=== PATIENT | male | born 1980 | race Caucasian/White ===

== ENCOUNTER 2016-03-12 08:52 | Emergency (ER) | payer OTHER ==
[~2016-03-12] VITALS: Wt 136.0 kg
[~2016-03-12 08:52] MED LIST: AZIT250T94 PO
--- NOTE | 2016-03-12 10:05 | RADRPT ---
PROCEDURE: XR Chest. CLINICAL INDICATION: chest pain, cough TECHNIQUE: Single frontal view of the chest was obtained COMPARISON: None FINDINGS: The heart and mediastinum are within normal limits. The lungs are clear. There is no pleural effusion or pneumothorax. RPTAT: AA IMPRESSION: No acute disease. .Remy Lovelace MD, MD Date Time Electronically viewed and signed by .Remy Lovelace MD, on 03/12/2016 10:04 .S/
--- NOTE | 2016-03-12 10:12 | ERD ---
ER Documentation Chief Complaint Date/Time DATE: 03/12/16 TIME: 10:07 Chief Complaint cough and productive green sputum for 5 days. no distress. no fevers HPI This patient is a 36-year-old male with history of walking pneumonia presenting to the emergency department for cough which is been ongoing for 1.5 weeks. The patient states that the cough is productive of green sputum. He also reports difficulty catching his breath when laying down at nighttime. He also has some left lower rib pain on coughing. He has taken Mucinex with only mild relief of his symptoms. He denies any fever, chills, sore throat, ear pain, abdominal pain, urinary symptoms, nausea, vomiting, diarrhea, chest pain, or other symptoms at this time. ROS All systems reviewed and are negative except as per history of present illness. 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 Physical Exam Vitals Vital Signs Date Time Temp Pulse Resp B/P Pulse Ox O2 Delivery O2 Flow Rate FiO2 03/12/16 08:54 98.9 102 20 135/64 96 Physical Exam INITIAL VITAL SIGNS: Reviewed by me. GENERAL: Alert and interactive. No acute distress. HEAD: Head is normocephalic and atraumatic. EYES: EOMI. No scleral icterus. No conjunctival injection. ENT: Moist mucosa. NECK: Supple. Full range of motion. RESPIRATORY: Normal respiratory effort. Clear breath sounds bilaterally. No wheezing, rales, or rhonchi. CV: Regular rate and rhythm. Normal S1 S2. No S3 or S4. No murmurs. ABDOMEN: Soft, non-distended, non-tender. No guarding. No rebound. No masses. EXTREMITIES: No deformity. SKIN: Warm and dry. NEUROLOGIC: Alert and oriented x 4. Speech is normal. Moves all extremities equally. No motor or sensory deficits noted. Procedures/MDM 36-year-old male presents to the emergency department for cough 1.5 weeks. The patient states he has a history of walking pneumonia. I ordered a chest x- ray looking for any signs of bronchitis or pneumonia. One view chest x-ray interpreted by radiologist: PROCEDURE: XR Chest. CLINICAL INDICATION: chest pain, cough TECHNIQUE: Single frontal view of the chest was obtained COMPARISON: None FINDINGS: The heart and mediastinum are within normal limits. The lungs are clear. There is no pleural effusion or pneumothorax. RPTAT: AA IMPRESSION: No acute disease. Diagnosis: upper respiratory infection. Discharge: I have discussed the lab results and diagnostic findings with the patient and answered any questions or concerns. The patient was discharged with a prescription for Tessalon Perles and Promethazine DM. The patient was advised to followup with their PMD in 1-2 days and to return to the ED if there are any new or worsening symptoms. The patient understood and agreed with treatment and plan. Departure Diagnosis: Primary Impression: Cough Additional Impression: Upper respiratory infection Condition: Stable EMMANUEL PINTO PA-C Mar 12, 2016 10:12
[2016-03-12] MEDS ORDERED: BENZ100C70 PO (10:13)
[2016-03-12] MEDS ORDERED: D-ME473S18 PO (10:14)
[2016-03-12 10:26] VITALS: BP 122/60; PULSE 87; RESP 20; TEMP 97.9
== END 2016-03-12 10:20 | disposition home or self-care (01) ==
LOC: FTE 08:52
DX: R05 Cough (principal); J06.9 Acute upper respiratory infection, unspecified
CPT/HCPCS: 71010

== ENCOUNTER 2016-03-15 09:14 | Emergency (ER) | payer OTHER ==
[~2016-03-15] VITALS: Wt 140.5 kg
[~2016-03-15 09:14] MED LIST changes: +BENZ100C70 PO; +D-ME473S18 PO
[2016-03-15] MEDS ORDERED: GUAI473L22 PO (11:03)
[2016-03-15 11:06] VITALS: BP 138/77; PULSE 98; RESP 20; TEMP 98.8
--- NOTE | 2016-03-15 17:17 | ERD ---
ER Documentation Chief Complaint Date/Time DATE: 03/15/16 TIME: 17:08 Chief Complaint cough dry non productive since tuesday. not better with cough medicine HPI The patient is a 36-year-old male here for approximately 1.5 weeks of mildly productive cough of green sputum. He denies any other symptoms or concerns at this time including, but not limited to shortness of breath, difficulty breathing, chest pain, wheezing, sore throat, earache, headache, abdominal pain , nausea, vomiting, diarrhea, fever, or chills. He denies smoking. 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 Denies international travel. He was seen here a few days ago and was given Tessalon Perles and promethazine without much relief. ROS All systems reviewed and are negative except as per history of present illness. Medications Home Meds Active Scripts Guaifenesin-Codeine Phosphate* (Guaifenesin* AC Cough Syrup) 473 Ml Liquid, 10 ML PO QHS Y for COUGH for 7 Days, ML Prov:ABNER LARA, TECHNICAL SUPPORT TECHNICIAN 03/15/16 Dextromethorphan Hb-Promethazine Hcl (Promethazine DM Syrup) 473 Ml Syrup, 5 ML PO QHS Y for COUGH, #100 ML Prov:EMMANUEL PINTO PA-C 03/12/16 Benzonatate* (Tessalon Perle*) 100 Mg Capsule, 100 MG PO Q8H Y for COUGH, #20 CAP Prov:EMMANUEL PINTO PA-C 03/12/16 Azithromycin* (Zithromax*) 250 Mg Tablet, 250 MG PO .ZPACK DIRECTED, #6 TAB TAKE 500 MG (2 TABS) THE FIRST DAY THEN 250 MG (1 TAB) DAYS 2-5 Prov:TAYLER CROCKETT PA-C 06/02/15 Allergies Allergies: Coded Allergies: No Known Allergy (Unverified , 03/12/16) PMhx/Soc Medical and Surgical Hx: pt denies Medical Hx, pt denies Surgical Hx Hx Miscellaneous Medical Probl: Yes (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 Well developed and well nourished. No acute distress. Nontoxic -appearing. HEAD: Head is normocephalic. Atraumatic. EYES: EOMI. PERRL. No scleral icterus. No conjunctival injection. No clear purulent drainage. ENT: External ears, nose, and mouth normal. Ear canals clear and without erythema or exudates. Tympanic membranes normal, positive light reflex, no erythema, no bulging, no effusion. Nares patent and without rhinorrhea. Oropharynx is clear and without erythema or exudates. Tonsils +2 and without erythema or exudates. Uvula midline. Airway patent. Moist mucous membranes. NECK: Supple. Full range of motion. Trachea midline. No lymphadenopathy. No meningismus. RESPIRATORY: No tachypnea. Clear to auscultation bilaterally. No wheezing, rales , or rhonchi. CV: Regular rate and rhythm. No murmurs, rubs, or gallops ABDOMEN: Soft, non-distended, non-tender. No guarding. Bowel sounds normal in all quadrants. BACK: No CVA tenderness. Full ROM. EXTREMITIES: No obvious deformity. No clubbing or cyanosis. No edema. SKIN: Warm and dry. No diaphoresis. No obvious rashes or lesions. NEUROLOGIC: Alert and oriented x 3. Appropriate. Face is symmetric. Speech is normal. Moves all extremities equally. Procedures/MDM Nursing Notes Reviewed Previous Medical Records requested via [employer] [facility]. EMERGENCY DEPARTMENT COURSE / MEDICAL DECISION MAKING: The patient comes to the ED secondary to mildly productive cough of green sputum times approximately 1.5 weeks. Differential diagnosis upon initial evaluation includes but is not limited to: Pneumonia, sepsis, meningitis, strep pharyngitis, URI, and others. Based on patient's history of present illness and physical examination the decision was made to discharge. There is no evidence of life threatening injuries or illnesses at this time. Given that the patient is generally well- appearing, his history of present illness, his benign physical exam, oximetry 96 % on room air, no tachypnea, no respiratory distress, no wheezing, no rhonchi, no rales, no stridor, afebrile, I have low suspicion at this time for pneumonia , sepsis, meningitis, strep pharyngitis, or any other serious cause of illness. As such, I believe the patient is an appropriate candidate for outpatient management and follow-up at this time. His he states that his cough is very bothersome at night and prevents him from sleeping well, I will prescribe him guaifenesin with codeine. He is also requesting a work note so that he may get plenty of rest over the next couple days. I gave him a work note for today and tomorrow. Final impression: URI, likely viral On re-examination, patient resting in no distress, stable vital signs, reports feeling better and safe for discharge with outpatient follow up with PMD in 2-3 days. Patient given return precautions. The patient verbalized understanding and agreed to return precautions. All of his questions and concerns were addressed prior to discharge. He agrees to get plenty of fluids and plenty of rest. He agrees to perform good hand hygiene and cover his cough. He agrees with the plan of care and will follow-up as directed. Patient's blood pressure was elevated but appears stable without evidence of hypertensive emergency, end organ damage, chest pain or shortness of breath. The patient was counseled about the risks of untreated hypertension and urged to pursue outpatient monitoring and therapy in 2-3 days with their primary care physician. Prescriptions Guaifenesin with codeine syrup Departure Diagnosis: Primary Impression: URI (upper respiratory infection) URI type: unspecified viral URI Qualified Code: J06.9 - Viral upper respiratory tract infection Condition: Stable Patient Instructions: Preventing Common Respiratory Infections Additional Instructions: Call your primary care doctor TOMORROW for an appointment during the next 2-3 days.See the doctor sooner or return here if your condition worsens before your appointment time. ABNER LARA NP Mar 15, 2016 17:17
== END 2016-03-15 11:10 | disposition home or self-care (01) ==
LOC: FTE 09:14
DX: J06.9 Acute upper respiratory infection, unspecified (principal)
CPT/HCPCS: 99283

== ENCOUNTER 2016-07-06 09:25 | Emergency (ER) | payer OTHER ==
[~2016-07-06] VITALS: Ht 193 cm; Wt 137.0 kg
[~2016-07-06 09:25] MED LIST changes: +GUAI473L22 PO
[2016-07-06 09:27] VITALS: Ht 193 cm; Wt 137.0 kg
--- NOTE | 2016-07-06 10:41 | ERD ---
ER Documentation Chief Complaint Date/Time DATE: 07/06/16 TIME: 10:39 Chief Complaint diarrhea x 3 days HPI This a 36-year-old male who presents the emergency department today for multiple bouts of diarrhea for the past 3 days. States that he has taken Imodium it slows it down some but his diarrhea has persisted. States it on he ate some oysters however his diarrhea did not start for 3 days. Denies any blood in his stool, abdominal pain, vomiting. States that he does have some rectal irritation and has been using a and D cream for denies any foreign travel. ROS All systems reviewed and are negative except as per history of present illness. Medications Home Meds Active Scripts Ciprofloxacin Hcl* (Ciprofloxacin Hcl*) 500 Mg Tablet, 500 MG PO BID for 5 Days , TAB Prov:CHRISTIANO RENTERIA PA-C 07/06/16 Dicyclomine Hcl* (Bentyl*) 10 Mg Capsule, 10 MG PO QID, #30 CAP Prov:CHRISTIANO RENTERIA PA-C 07/06/16 Guaifenesin-Codeine Phosphate* (Guaifenesin* AC Cough Syrup) 473 Ml Liquid, 10 ML PO QHS Y for COUGH for 7 Days, ML Prov:ABNER LARA, [employer] INS[employer]ANCE SALESPERSON 03/15/16 Dextromethorphan Hb-Promethazine Hcl (Promethazine DM Syrup) 473 Ml Syrup, 5 ML PO QHS Y for COUGH, #100 ML Prov:EMMANUEL PINTO PA-C 03/12/16 Benzonatate* (Tessalon Perle*) 100 Mg Capsule, 100 MG PO Q8H Y for COUGH, #20 CAP Prov:EMMANUEL PINTO PA-C 03/12/16 Azithromycin* (Zithromax*) 250 Mg Tablet, 250 MG PO .ZPACK DIRECTED, #6 TAB TAKE 500 MG (2 TABS) THE FIRST DAY THEN 250 MG (1 TAB) DAYS 2-5 Prov:TAYLER CROCKETT PA-C 06/02/15 Allergies Allergies: Coded Allergies: No Known Allergy (Unverified , 03/12/16) PMhx/Soc Medical and Surgical Hx: pt denies Medical Hx History of Surgery: Yes Anesthesia Reaction: No Hx Neurological Disorder: No Hx Respiratory Disorders: No Hx Cardiac Disorders: No Hx Psychiatric Problems: No Hx Miscellaneous Medical Probl: 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 Neck: Full range of motion..~ No meningismus. Resp: Clear to auscultation bilaterally Cardio: Regular rate and rhythm, no murmurs Abd: Soft, non tender, non distended. Normal bowel sounds Skin: No petechiae or rashes Neur: Awake and alert Psych: Normal Mood and Affect Procedures/MDM This a 36-year-old male presents to the emergency department today for 3 days of diarrhea. Patient has no other symptoms. Patient has no abdominal pain on physical exam. Low suspicion for acute surgical abdomen. He is afebrile and otherwise well-appearing. He has no vomiting. Low suspicion for bacterial cause of diarrhea however patient did eat oysters and vibrio is a possibility and therefore I will give him a prescription for Cipro to take in the next 2-3 days if symptoms do not improve. Also be given a prescription for Bentyl. At this time the patient is stable for discharge and outpatient management. Patient should follow up with their PCP in the next 1-2 days. They may return to the emergency department sooner for any persistent or worsening of symptoms. Patient understood and agreed with the plan. Discussed the patient with Dr. Mccray and he is in agreement with the plan. Departure Diagnosis: Primary Impression: Diarrhea Diarrhea type: unspecified type Qualified Code: R19.7 - Diarrhea, unspecified type Condition: CHRISTIANO Baker PA-C July 06, 2016 10:41
[2016-07-06] MEDS ORDERED: DICY10CA60 PO (10:49)
[2016-07-06] MEDS ORDERED: CIPR500T4 PO (10:50)
== END 2016-07-06 11:14 | disposition home or self-care (01) ==
LOC: FTE 09:25
DX: R19.7 Diarrhea, unspecified (principal)